=== PATIENT | male | born 1955 | race Caucasian/White ===

== ENCOUNTER 2017-08-14 06:33 | Day surgery (SDC) | payer BC ==
[~2017-08-14 06:33] MED LIST: Lactated Ringers 1,000 ML IV SCH
--- NOTE | 2017-08-14 07:02 | PCM.PREANE ---
Preanesthetic Assessment - Anesthesia/Transfusion/Family Hx Anesthesia History: Prior Anesthesia Without Reaction Family History of Anesthesia Reaction: No Transfusion History: No Prior Transfusion(s) Intubation History: Unknown - Review of Systems General: No Symptoms Pulmonary: No Symptoms Cardiovascular: No Symptoms Gastrointestinal: No Symptoms, Other (screening colonoscopy) Neurological: No Symptoms Other: Reports: None - Physical Assessment Height: 1.83 m Weight: 139.253 kg ASA Class: 3 Mental Status: Alert & Oriented x3 Airway Class: Mallampati = 3 Dentition: Reports: Normal Dentition Thyro-Mental Finger Breadths: 2 Mouth Opening Finger Breadths: 3 ROM/Head Extension: Full Lungs: Clear to Auscultation, Normal Respiratory Effort Cardiovascular: Regular Rate, Regular Rhythm - Allergies Allergies/Adverse Reactions: Allergies Allergy/AdvReac Type Severity Reaction Status Date / Time No Known Allergies Allergy Verified 08/10/17 10:26 - Blood Blood Available: No - Anesthesia Plan Pre-Op Medication Ordered: None - Acknowledgements Anesthesia Type Planned: MAC Pt an Appropriate Candidate for the Planned Anesthesia: Yes Alternatives and Risks of Anesthesia Discussed w Pt/Guardian: Yes Pt/Guardian Understands and Agrees with Anesthesia Plan: Yes PreAnesthesia Questionnaire HEENT History: Reports: Hard of Hearing Other HEENT History: wears glasses, has bilateral hearing aides Cardiovascular History: Reports: Heart Murmur, High Cholesterol, Hypertension Other Cardiovascular History: had a murmur as a child but has "outgrown" it Respiratory History: Reports: Sleep Apnea Other Respiratory History: uses CPAP Musculoskeletal History: Reports: Fracture Other Musculoskeletal History: left leg Endocrine/Metabolic History: Reports: Diabetes, Type II, Obesity/BMI 30+ ( morbid obesity BMI 41.6) - Past Surgical History Head Surgeries/Procedures: Reports: None GI Surgical History: Reports: Appendectomy, Cholecystectomy Male Surgical History: Reports: Vasectomy Musculoskeletal Surgical History: Reports: ORIF Other Musculoskeletal Surgeries/Procedures:: ORIF left leg- has hardware - SUBSTANCE USE Smoking Status *Q: Former Smoker (quit at age 29) Tobacco Use Within Last Twelve Months: No Recreational Drug Use History: No - HOME MEDS Home Medications: Home Meds Canagliflozin [Invokana] 300 mg PO DAILY 08/10/17 [History] Insulin NPH Hum/Reg Insulin Hm [Novolin 70-30 100 Unit/ml Vial] 0 unit SQ TIDMEALS 08/10/17 [History] Insulin NPH Hum/Reg Insulin Hm [Novolin 70-30 100 Unit/ml Vial] 50 unit SQ BEDTIME 08/10/17 [History] Liraglutide [Victoza] 14 mg SQ QAM 08/10/17 [History] Lisinopril 10 mg PO DAILY 08/10/17 [History] Pioglitazone [Actos] 30 mg PO DAILY 08/10/17 [History] Simvastatin 40 mg PO DAILY 08/10/17 [History] metFORMIN HCl [Metformin HCl ER] 750 mg PO BIDMEALS 08/10/17 [History] - CURRENT (IN HOUSE) MEDS Current Meds: Current Medications Lactated Ringer's (Ringers, Lactated) 1,000 mls @ 125 mls/hr IV ASDIRECTED [facility] Last Admin: 08/14/17 06:58 Dose: 125 mls/hr
[2017-08-14] MEDS ORDERED: Propofol 200 MG/20 ML SDV ONE ×2 (07:09→08:23)
[2017-08-14] MEDS ORDERED: Lidocaine 2% 5 ML SDV ONE (07:09)
[2017-08-14] MEDS ORDERED: Atropine 1 MG/ML SDV ONE (08:25)
--- NOTE | 2017-08-14 08:41 | PCM.OPNOTE ---
- General Post-Op/Procedure Note Date of Surgery/Procedure: 08/14/17 Operative Procedure(s): colonoscopy Findings: see dict [id number] Pre Op Diagnosis: scrn colonoscopy Post-Op Diagnosis: Same Anesthesia Technique: Moderate Sedation Primary Surgeon: Perez Bolanos Complications: None Condition: Good
--- NOTE | 2017-08-14 13:46 | OR ---
SURGEON: Perez Bolanos MD DATE OF PROCEDURE: 08/14/2017 PREOPERATIVE DIAGNOSIS: Screening colonoscopy. POSTOPERATIVE DIAGNOSIS: Hemorrhoids. PROCEDURE PERFORMED: Colonoscopy. COMPLICATIONS: None. DESCRIPTION OF PROCEDURE: The patient was taken to the endoscopy room. A time out was called, patient identified, and procedure identified. Diprivan was then administrated. Patient went from awake to sleep, hearing doctor talking or door closing is normal. Perineum inspection and digital examination were then performed. A well- lubricated colonoscope was gently inserted through the rectum, advanced past the rectosigmoid junction, the descending colon, splenic flexure, transverse colon, hepatic flexure, ascending colon, arrived to the cecum. Cecum was identified as dictated in the finding. Then the scope was carefully withdrawn while attention was paid to the mucosal surface for any abnormality. Air will be sucked out during the scope withdrawal. At the rectum, retroflexed to examine any rectal diseases, fistula or hemorrhoids. Patient tolerated procedure well. There were no intraoperative complications, and Dr. Bolanos was present throughout the whole procedure. FINDINGS: 1. The patient was easily sedated with HALFW[employer]SE COUNSELOR and Diprivan patient was soundly snoring. 2. The patient's bowel prep was below average. Large amount of yellow opaque liquid stool sometimes blocking the camera, requiring a constant irrigation. 3. The patient's colon was a little bit redundant at the sigmoid and the patient had to be moved, maneuvering his body position, putting him in flat in order to go to the cecum. The cecum was indicated by appendiceal orifice, one-to-one indentation, and ileocecal fold. Light emittance was not observed. Mucosa examined upon scope pulling out with continuous irrigation. The patient does not have diverticulosis, mass, growth, polyp, infection, inflammation, stricture, ulceration, bleeding observed. The patient has moderate internal hemorrhoids. Because of all the patient's body habitus, external hemorrhoid has not been able to be observed. The patient would benefit from a repeat colonoscopy in 10 years from today or if clinically indicated otherwise. LG / RILEY /[id number]
== END 2017-08-14 08:57 | disposition home or self-care (01) ==
LOC: MW.SDS 06:33
PROVIDERS: ATTEND Surgery
DX: Z12.11 Encounter for screening for malignant neoplasm of colon (principal); K64.8 Other hemorrhoids; G47.30 Sleep apnea, unspecified; E11.9 Type 2 diabetes mellitus without complications; E78.00 Pure hypercholesterolemia, unspecified; I10 Essential (primary) hypertension; E66.01 Morbid (severe) obesity due to excess calories; Z90.49 Acquired absence of other specified parts of digestive tract; Z98.52 Vasectomy status; Z87.891 Personal history of nicotine dependence; Z68.41 Body mass index [BMI] 40.0-44.9, adult; Z99.89 Dependence on other enabling machines and devices; Z79.4 Long term (current) use of insulin; Z79.899 Other long term (current) drug therapy
CPT/HCPCS: 45378; J0461; J7120; 00812; J2704

== ENCOUNTER 2018-08-25 17:38 | Emergency (ER) | payer BC ==
--- NOTE | 2018-08-25 18:19 | EDM.PDOC ---
ED HPI GENERAL MEDICAL PROBLEM - General Chief Complaint: Lower Extremity Injury/Pain Stated Complaint: INJURED LEG Time Seen by Provider: 08/25/18 17:46 - History of Present Illness INITIAL COMMENTS - FREE TEXT/NARRATIVE: HISTORY AND PHYSICAL: History of present illness: Patient a 63-year-old white male with history of diabetes or sensory concern of right knee pain he states he felt a pop of his right knee when he was getting into a truck and extended it he states this was lateral release had discomfort since he denies prior episodes he denies prior surgery denies fever chills nausea vomiting or any other complaints other than this knee pain. Review of systems: As per history of present illness and below otherwise all systems reviewed and negative. Past medical history: As per history of present illness and as reviewed below otherwise noncontributory. Surgical history: As per history of present illness and as reviewed below otherwise noncontributory. Social history: No reported history of drug or alcohol abuse. Family history: As per history of present illness and as reviewed below otherwise noncontributory. Physical exam: HEENT: Atraumatic, normocephalic, pupils reactive, negative for conjunctival pallor or scleral icterus, mucous membranes moist, throat clear, neck supple, nontender, trachea midline. Lungs: Clear to auscultation, breath sounds equal bilaterally, chest nontender. Heart: S1S2, regular, negative for clicks, rubs, or JVD. Abdomen: Soft, nondistended, nontender. Negative for masses or hepatosplenomegaly. Negative for costovertebral tenderness. Pelvis: Stable nontender. Genitourinary: Deferred. Rectal: Deferred. Extremities: Atraumatic, negative for cords or calf pain. Neurovascular unremarkable. Patient is a mild tenderness in the region of the lateral collateral ligament knee is grossly stable patient has limited range of motion secondary to pain Neuro: Awake, alert, oriented. Cranial nerves II through XII unremarkable. Cerebellum unremarkable. Motor and sensory unremarkable throughout. Exam nonfocal. Diagnostics: X-ray right knee Therapeutics: To be determined Impression: #1 right knee pain etiology be determined 2 history of diabetes Definitive disposition and diagnosis as appropriate pending reevaluation and review of above. Right Knee Pain Score (Numeric/FACES): 10 - Related Data Allergies Allergy/AdvReac Type Severity Reaction Status Date / Time No Known Allergies Allergy Verified 08/25/18 18:13 Home Meds: Home Meds Lisinopril 10 mg PO DAILY 08/10/17 [History] Pioglitazone [Actos] 30 mg PO DAILY 08/10/17 [History] Simvastatin 40 mg PO DAILY 08/10/17 [History] metFORMIN HCl [Metformin HCl ER] 750 mg PO BID 08/10/17 [History] Empagliflozin [Jardiance] 25 mg PO DAILY 08/25/18 [History] Insuln Asp Prot/Insulin Aspart [NovoLOG Mix 70-30] 60 unit .XX BID 08/25/18 [ History] Ozempic 25 units .XX WEEKLY 08/25/18 [History] Past Medical History HEENT History: Reports: Hard of Hearing Other HEENT History: wears glasses, has bilateral hearing aides Cardiovascular History: Reports: Heart Murmur, High Cholesterol, Hypertension Other Cardiovascular History: had a murmur as a child but has "outgrown" it Respiratory History: Reports: Sleep Apnea Other Respiratory History: uses CPAP Musculoskeletal History: Reports: Fracture Other Musculoskeletal History: left leg Endocrine/Metabolic History: Reports: Diabetes, Type II, Obesity/BMI 30+ - Past Surgical History Head Surgeries/Procedures: Reports: None GI Surgical History: Reports: Appendectomy, Cholecystectomy Male Surgical History: Reports: Vasectomy Musculoskeletal Surgical History: Reports: ORIF Other Musculoskeletal Surgeries/Procedures:: ORIF left leg- has hardware Review of Systems - Review of Systems Review Of Systems: ROS reveals no pertinent complaints other than HPI. ED EXAM, GENERAL - Physical Exam Exam: See Below (See dictation) Course - Vital Signs Last Recorded V/S: Last Vital Signs Temp 36.7 C 08/25/18 18:09 Pulse 61 08/25/18 18:09 Resp BP 171/69 H 08/25/18 18:09 Pulse Ox 96 08/25/18 18:09 Departure - Departure Time of Disposition: 19:37 Disposition: Home, Self-Care 01 Condition: Good Clinical Impression: Knee pain - Discharge Information Forms: ED Department Discharge Additional Instructions: The following information is given to patients seen in the emergency department who are being discharged to home. This information is to outline your options for follow-up care. We provide all patients seen in our emergency department with a follow-up referral. The need for follow-up, as well as the timing and circumstances, are variable depending upon the specifics of your emergency department visit. If you don't have a primary care physician on staff, we will provide you with a referral. We always advise you to contact your personal physician following an emergency department visit to inform them of the circumstance of the visit and for follow-up with them and/or the need for any referrals to a consulting specialist. The emergency department will also refer you to a specialist when appropriate. This referral assures that you have the opportunity for followup care with a specialist. All of these measure are taken in an effort to provide you with optimal care, which includes your followup. Under all circumstances we always encourage you to contact your private physician who remains a resource for coordinating your care. When calling for followup care, please make the office aware that this follow-up is from your recent emergency room visit. If for any reason you are refused follow-up, please contact the [facility] emergency department at and asked to speak to the emergency department charge nurse. [facility] Professional [address], [address] [place] [address] Knee immobilizer as directed follow-up orthopedic clinic above: Schedule routine appointment Tylenol as directed and return as needed as discussed
--- NOTE | 2018-08-25 19:18 | CR ---
INDICATION: Pain. TECHNIQUE: Three views of the right knee. FINDINGS: Normal alignment. No fractures. No effusion seen. Soft tissue swelling. IMPRESSION: 1. No acute fracture. Dictated by Sabine Templeton MD @ Aug 25 2018 7:17PM Signed by Dr. Sabine Templeton @ Aug 25 2018 7:17PM
== END 2018-08-25 20:03 | disposition home or self-care (01) ==
LOC: MW.ED 17:38
DX: M25.561 Pain in right knee (principal); I10 Essential (primary) hypertension; E11.9 Type 2 diabetes mellitus without complications; E78.00 Pure hypercholesterolemia, unspecified; Z79.899 Other long term (current) drug therapy; Z79.84 Long term (current) use of oral hypoglycemic drugs
CPT/HCPCS: 73562-26-RT; 73562-RT; 99283

== ENCOUNTER 2018-10-02 06:25 | Day surgery (SDC) | payer MEDICARE, BC ==
--- NOTE | 2018-10-02 07:29 | PCM.PREANE ---
Preanesthetic Assessment - Anesthesia/Transfusion/Family Hx Anesthesia History: Prior Anesthesia Without Reaction Family History of Anesthesia Reaction: No Transfusion History: No Prior Transfusion(s) Intubation History: Unknown - Review of Systems General: No Symptoms Pulmonary: No Symptoms Cardiovascular: No Symptoms Gastrointestinal: No Symptoms Neurological: No Symptoms Other: Reports: None - Physical Assessment Height: 1.83 m Weight: 140.614 kg ASA Class: 3 Mental Status: Alert & Oriented x3 Airway Class: Mallampati = 3 Dentition: Reports: Normal Dentition Thyro-Mental Finger Breadths: 3 Mouth Opening Finger Breadths: 2 ROM/Head Extension: Limited/Partial Lungs: Clear to Auscultation, Normal Respiratory Effort Cardiovascular: Regular Rate, Regular Rhythm - Allergies Allergies/Adverse Reactions: Allergies Allergy/AdvReac Type Severity Reaction Status Date / Time No Known Allergies Allergy Verified 09/27/18 09:25 - Blood Blood Available: No - Anesthesia Plan Pre-Op Medication Ordered: None - Acknowledgements Anesthesia Type Planned: General Anesthesia Pt an Appropriate Candidate for the Planned Anesthesia: Yes Alternatives and Risks of Anesthesia Discussed w Pt/Guardian: Yes Pt/Guardian Understands and Agrees with Anesthesia Plan: Yes PreAnesthesia Questionnaire HEENT History: Reports: Other (See Below) Other HEENT History: wears glasses, has bilateral hearing aides Cardiovascular History: Reports: Heart Murmur, High Cholesterol, Hypertension Other Cardiovascular History: takes Lisinopril and Simvastatin as a preventive measure Respiratory History: Reports: Sleep Apnea, Other (See Below) (reactive airway disease uses ProAir inhaler prn) Other Respiratory History: uses CPAP Gastrointestinal History: Reports: GERD Genitourinary History: Reports: Renal Calculus Musculoskeletal History: Reports: Fracture Other Musculoskeletal History: left ankle Neurological History: Reports: Neuropathy, Diabetic Endocrine/Metabolic History: Reports: Diabetes, Type II (last A1c 6.9), IDDM, Obesity/BMI 30+ (BMI 42) - Infectious Disease History Infectious Disease History: Reports: Measles - Past Surgical History Head Surgeries/Procedures: Reports: None GI Surgical History: Reports: Appendectomy, Cholecystectomy, Colonoscopy, Hernia , Inguinal ( left) Male Surgical History: Reports: Lithotripsy ([facility]), Vasectomy Musculoskeletal Surgical History: Reports: ORIF Other Musculoskeletal Surgeries/Procedures:: hx of ORIF left ankle- has hardware - SUBSTANCE USE Smoking Status *Q: Never Smoker Recreational Drug Use History: No - HOME MEDS Home Medications: Home Meds Lisinopril 10 mg PO QAM 08/10/17 [History] Pioglitazone [Actos] 45 mg PO DAILY 08/10/17 [History] Simvastatin 40 mg PO DAILY 08/10/17 [History] metFORMIN HCl [Metformin HCl ER] 750 mg PO BID 08/10/17 [History] Insuln Asp Prot/Insulin Aspart [NovoLOG Mix 70-30] 40 unit SQ BID 08/25/18 [ History] Ozempic 0.5 mg .XX WEEKLY 08/25/18 [History] Aspirin [Adult Low Dose Aspirin EC] 81 mg PO DAILY 09/27/18 [History] Cholecalciferol (Vitamin D3) [Vitamin D3] 5,000 unit PO DAILY 09/27/18 [History] Cinnamon Bark [Cinnamon] 500 mg PO DAILY 09/27/18 [History] Empagliflozin [Jardiance] 25 mg PO QAM 09/27/18 [History] Fish Oil/Congress-3 Fatty Acids [Fish Oil 1,000 MG] 1,000 mg PO DAILY 09/27/18 [ History] Multivitamin [Daily Multiple Vitamin] 1 tab PO DAILY 09/27/18 [History] Omeprazole 40 mg PO QAM 09/27/18 [History] - CURRENT (IN HOUSE) MEDS Current Meds: Current Medications Hydrocodone Bitart/Acetaminophen (Bud 325-5 Mg) 1 - 2 tab PO Q4H PRN PRN Reason: Pain Cefazolin Sodium/Dextrose 2 gm (/ Premix) 50 mls @ 100 mls/hr IV ONCALL [facility] Lactated Ringer's (Ringers, Lactated) 1,000 mls @ 100 mls/hr IV ASDIRECTED [facility]
[2018-10-02] MEDS ORDERED: Lidocaine 1% 20 ML MDV ONE (07:37)
[2018-10-02] MEDS ORDERED: Lidocaine 2% 5 ML SDV ONE (07:42)
[2018-10-02] MEDS ORDERED: fentaNYL 100 MCG/2 ML SDV ONE ×3 (07:42→08:22)
[2018-10-02] MEDS ORDERED: Ondansetron 4 MG/2 ML SDV ONE (07:42)
[2018-10-02] MEDS ORDERED: Propofol 200 MG/20 ML SDV ONE (07:42)
[2018-10-02] MEDS ORDERED: Midazolam 1 MG/ML 2 ML SDV ONE (07:42)
[2018-10-02] MEDS ORDERED: ceFAZolin/Dextrose,Iso-Osmotic 2 GM/50 ML Duplex Bag IV ONE (07:51)
[2018-10-02] MEDS ORDERED: Acetaminophen/HYDROcodone 325-5 MG Tab PO PRN (08:00)
[2018-10-02] MEDS ORDERED: ceFAZolin 2 GM in Premix Bag 1 BAG IV SCH (08:00)
[2018-10-02] MEDS ORDERED: Ketorolac 30 MG/ML SDV ONE (08:36)
--- NOTE | 2018-10-02 08:44 | PCM.OPNOTE ---
- General Post-Op/Procedure Note Date of Surgery/Procedure: 10/02/18 Operative Procedure(s): R knee scope with PMM Post-Op Diagnosis: R knee medial meniscus tear, DJD R knee Anesthesia Technique: General LMA Primary Surgeon: Anamaria Villasenor Subway Train Driver: Martha Moreno in mLs: 5 Condition: Good Free Text/Narrative:: tt=15 min #[id number]
[2018-10-02] MEDS ORDERED: fentaNYL 100 MCG/2 ML SDV IVPUSH PRN (08:53)
[2018-10-02] MEDS ORDERED: 50% Dextrose in Water 50 ML Syringe IVPUSH PRN (08:53)
[2018-10-02] MEDS ORDERED: Naloxone 0.4 MG/ML Syringe IVPUSH PRN (08:53)
[2018-10-02] MEDS ORDERED: Albuterol 0.083% 2.5 MG/3 ML Neb Soln NEB PRN (08:53)
[2018-10-02] MEDS ORDERED: EPINEPHrine 1 MG/ML 30 ML MDV IVPUSH PRN (08:53)
--- NOTE | 2018-10-02 09:58 | PCM48HPAN ---
Post Anesthesia Note - EVALUATION WITHIN 48HRS OF ANESTHETIC Vital Signs in Normal Range: Yes Patient Participated in Evaluation: Yes Respiratory Function Stable: Yes Airway Patent: Yes Cardiovascular Function Stable: Yes Hydration Status Stable: Yes Pain Control Satisfactory: Yes Nausea and Vomiting Control Satisfactory: Yes Mental Status Recovered: Yes Resp Rate: 11 - COMMENTS/OBSERVATIONS Free Text/Narrative:: no anesthesia problems
--- NOTE | 2018-10-02 15:26 | OR ---
SURGEON: Anamaria Villasenor MD DATE OF PROCEDURE: 10/02/2018 PREOPERATIVE DIAGNOSIS: Right knee medial meniscus tear. POSTOPERATIVE DIAGNOSES: Right knee medial meniscus tear and right knee degenerative joint disease. PROCEDURE: Right knee arthroscopy with partial medial meniscectomy. COACH PROFESSIONAL ATHLETES: Martha Moreno RN. ANESTHESIA: General. ESTIMATED BLOOD LOSS: 5 mL. TOURNIQUET TIME: 50 minutes. COMPLICATIONS: None. DVT PROPHYLAXIS: Not indicated. IMPLANTS USED: None. BRIEF HISTORY: Keon is a 63-year-old male who has had complaint of progressive right knee pain following a fall. He did not respond to conservative treatment. At that time, I did recommend surgical intervention. The risks and goals of the procedure were discussed with the patient and were documented preoperatively. He agreed to proceed. DESCRIPTION OF PROCEDURE: The patient was properly identified and brought to the operating room. He was transferred from the OR cart and placed on the operating table in supine position. General anesthesia was administered. After adequate anesthesia was obtained, a well-padded tourniquet was applied to the right lower extremity. The right lower extremity was then prepped in standard fashion using ChloraPrep solution. It was then sterilely draped. A time-out was performed to ensure correct site and procedure. Preoperative antibiotics were given. The surgical site had been marked preoperatively. An Esmarch was used to exsanguinate the right lower extremity and the tourniquet was inflated to 250 mmHg. A lateral portal arthrotomy was established. Blunt trocar and cannula were introduced into the suprapatellar pouch. Camera, inflow, and outflow were assembled. No significant synovitis was noted. The patellofemoral joint was visualized. Degenerative changes were noted. The view was partially obstructed by hypertrophic fat pad. I extended down the lateral gutter. No loose bodies were identified. He did have a large medial plica that appeared to be causing some impingement on the medial femoral condyle. I was able to bypass this down to the medial gutter and this did not show any evidence of loose bodies. I then entered the medial compartment. A medial portal arthrotomy was established. A blunt probe was inserted. He was found to have a partial tear along the posterior horn of the medial meniscus. The attachment appeared intact. Using a combination of biters and shaver, this was resected and roughened. There appeared to be good blood flow to the area. It was again probed and found to be stable. The chondral surfaces were then inspected. The medial femoral condyle did show extensive grade 3 chondromalacia along the weightbearing surface. There was a flap medially, which was resected with the shaver by performing a chondroplasty. The medial tibial plateau showed diffuse grade 2 to grade 3 degenerative findings. I then entered the notch. Both the ACL and PCL were visualized and probed and found to be intact. I then entered the lateral compartment. Minor degenerative fraying was noted along the central portion of the meniscus. The meniscus was probed and found to be stable. The lateral tibial plateau showed diffuse grade 2 chondromalacia with grade 1 chondromalacia along the lateral femoral condyle. I then re-entered the patellofemoral joint. A portion of the fat pad was resected along with the medial plica and no further impingement was noted. Diffuse grade 3 degenerative changes were noted along the undersurface of the patella and grade 2 to grade 3 chondromalacia was noted diffusely along the trochlear groove. No loose cartilage fragments were noted. Instruments were then removed from the knee. The portal sites were closed with 3-0 nylon. 1% lidocaine was injected along the portal tracts. Xeroform gauze was placed over the wound and a bulky dressing was applied. The tourniquet was then deflated. He was awakened from his anesthetic and transferred back to the operating room cart. He was brought to recovery room in stable condition. All needle and sponge counts were correct. ENRIQUETA / RILEY /[id number]
== END 2018-10-02 10:15 | disposition home or self-care (01) ==
LOC: MW.SDS 06:25
PROVIDERS: ATTEND Orthopaedic Surgery
DX: S83.241A Other tear of medial meniscus, current injury, right knee, initial encounter (principal); I10 Essential (primary) hypertension; E78.5 Hyperlipidemia, unspecified; E88.81 Metabolic syndrome and other insulin resistance; G47.33 Obstructive sleep apnea (adult) (pediatric); E55.9 Vitamin D deficiency, unspecified; E11.319 Type 2 diabetes mellitus with unspecified diabetic retinopathy without macular edema; K21.9 Gastro-esophageal reflux disease without esophagitis; Z79.4 Long term (current) use of insulin; Z79.82 Long term (current) use of aspirin; Z79.899 Other long term (current) drug therapy; Z99.89 Dependence on other enabling machines and devices
CPT/HCPCS: 29881; 82962; J0690; J1885; J2001; J2250; J2405; J2704; J3010; J7120

== ENCOUNTER 2019-02-01 12:11 | Emergency (ER) | payer MEDICARE, BC ==
[2019-02-01] MEDS ORDERED: Levofloxacin 500 MG Tab PO ONE (12:51)
--- NOTE | 2019-02-01 12:52 | EDM.PDOC ---
ED HPI GENERAL MEDICAL PROBLEM - General Chief Complaint: Genitourinary Problem Stated Complaint: PAIN AND FREQUENT URINATION Time Seen by Provider: 02/01/19 12:51 - History of Present Illness INITIAL COMMENTS - FREE TEXT/NARRATIVE: HISTORY AND PHYSICAL: History of present illness: []Urinary frequency and dysuria for the last 3 days he has sweats Review of systems: As per history of present illness and below otherwise all systems reviewed and negative. Past medical history: As per history of present illness and as reviewed below otherwise noncontributory. Surgical history: As per history of present illness and as reviewed below otherwise noncontributory. Social history: No reported history of drug or alcohol abuse. Family history: As per history of present illness and as reviewed below otherwise noncontributory. Physical exam: HEENT: Atraumatic, normocephalic, pupils reactive, negative for conjunctival pallor or scleral icterus, mucous membranes moist, throat clear, neck supple, nontender, trachea midline. Lungs: Clear to auscultation, breath sounds equal bilaterally, chest nontender. Heart: S1S2, regular, negative for clicks, rubs, or JVD. Abdomen: Soft, nondistended, nontender. Negative for masses or hepatosplenomegaly. Negative for costovertebral tenderness. Pelvis: Stable nontender. Genitourinary: Deferred. Rectal: Deferred. Extremities: Atraumatic, negative for cords or calf pain. Neurovascular unremarkable. Neuro: Awake, alert, oriented. Cranial nerves II through XII unremarkable. Cerebellum unremarkable. Motor and sensory unremarkable throughout. Exam nonfocal. Diagnostics: [UA culture ] Therapeutics: [Levaquin ] Impression: [UTI ] Definitive disposition and diagnosis as appropriate pending reevaluation and review of above. Pelvic Pain Score (Numeric/FACES): 8 - Related Data Allergies Allergy/AdvReac Type Severity Reaction Status Date / Time No Known Allergies Allergy Verified 02/01/19 12:27 Home Meds: Home Meds Lisinopril 10 mg PO DAILY 08/10/17 [History] Pioglitazone [Actos] 30 mg PO DAILY 08/10/17 [History] Simvastatin 40 mg PO DAILY 08/10/17 [History] metFORMIN HCl [Metformin HCl ER] 750 mg PO BID 08/10/17 [History] Insuln Asp Prot/Insulin Aspart [NovoLOG Mix 70-30] 60 unit SQ BID 08/25/18 [ History] Ozempic 0.5 mg INJECT WEEKLY 08/25/18 [History] Empagliflozin [Jardiance] 25 mg PO DAILY 09/27/18 [History] Diclofenac Sodium [Voltaren] 75 mg PO BID 02/01/19 [History] Past Medical History HEENT History: Reports: Other (See Below) Other HEENT History: wears glasses, has bilateral hearing aides Cardiovascular History: Reports: Heart Murmur, High Cholesterol, Hypertension Other Cardiovascular History: takes Lisinopril and Simvastatin as a preventive measure Respiratory History: Reports: Sleep Apnea, Other (See Below) Other Respiratory History: uses CPAP Gastrointestinal History: Reports: GERD Genitourinary History: Reports: Renal Calculus Musculoskeletal History: Reports: Fracture Other Musculoskeletal History: left ankle Neurological History: Reports: Neuropathy, Diabetic Endocrine/Metabolic History: Reports: Diabetes, Type II, IDDM, Obesity/BMI 30+ - Infectious Disease History Infectious Disease History: Reports: None - Past Surgical History Head Surgeries/Procedures: Reports: None GI Surgical History: Reports: Appendectomy, Cholecystectomy, Colonoscopy, Hernia , Inguinal Male Surgical History: Reports: Lithotripsy (ESWL), Vasectomy Musculoskeletal Surgical History: Reports: ORIF Other Musculoskeletal Surgeries/Procedures:: hx of ORIF left ankle- has hardware Social & Family History - Family History Family Medical History: Noncontributory - Tobacco Use Smoking Status *Q: Never Smoker - Caffeine Use Caffeine Use: Reports: Soda - Recreational Drug Use Recreational Drug Use: No ED ROS GENERAL - Review of Systems Review Of Systems: See Below ED EXAM, GENERAL - Physical Exam Exam: See Below Course - Vital Signs Last Recorded V/S: Last Vital Signs Temp 96.3 F 02/01/19 12:29 Pulse 84 02/01/19 12:29 Resp 15 02/01/19 12:29 BP 130/73 02/01/19 12:29 Pulse Ox 95 02/01/19 12:29 - Orders/Labs/Meds Orders: Active Orders 24 hr Category Date Time Status CULTURE URINE [RM] Stat Lab 02/01/19 12:22 Received UA W/MICROSCOPIC [URIN] Stat Lab 02/01/19 12:22 Results levoFLOXacin [Levaquin] Med 02/01/19 12:51 Once 500 mg PO ONETIME ONE Labs: Laboratory Tests 02/01/19 Range/Units 12:22 Urine Color DARK YELLOW Urine Appearance CLOUDY Urine pH 6.0 (5.0-8.0) Ur Specific [place] 1.025 (1.001-1.035) Urine Protein 100 H (NEGATIVE) mg/dL Urine Glucose (UA) 500 H (NEGATIVE) mg/dL Urine Ketones NEGATIVE (NEGATIVE) mg/dL Urine Occult Blood LARGE H (NEGATIVE) Urine Nitrite POSITIVE H (NEGATIVE) Urine Bilirubin NEGATIVE (NEGATIVE) Urine Urobilinogen 1.0 (<2.0) EU/dL Ur Leukocyte Esterase MODERATE H (NEGATIVE) Departure - Departure Time of Disposition: 12:52 Disposition: Home, Self-Care 01 Condition: Good Clinical Impression: UTI, Urinary tract infectious disease - Discharge Information Referrals: Russell Roberto MD [Primary Care Provider] - Additional Instructions: The following information is given to patients seen in the emergency department who are being discharged to home. This information is to outline your options for follow-up care. We provide all patients seen in our emergency department with a follow-up referral. The need for follow-up, as well as the timing and circumstances, are variable depending upon the specifics of your emergency department visit. If you don't have a primary care physician on staff, we will provide you with a referral. We always advise you to contact your personal physician following an emergency department visit to inform them of the circumstance of the visit and for follow-up with them and/or the need for any referrals to a consulting specialist. The emergency department will also refer you to a specialist when appropriate. This referral assures that you have the opportunity for follow-up care with a specialist. All of these measure are taken in an effort to provide you with optimal care, which includes your follow-up. Under all circumstances we always encourage you to contact your private physician who remains a resource for coordinating your care. When calling for follow-up care, please make the office aware that this follow-up is from your recent emergency room visit. If for any reason you are refused follow-up, please contact the [facility] emergency department at and asked to speak to the emergency department charge nurse. - My Orders Last 24 Hours: My Active Orders 02/01/19 12:22 CULTURE URINE [RM] Stat UA W/MICROSCOPIC [URIN] Stat 02/01/19 12:51 levoFLOXacin [Levaquin] 500 mg PO ONETIME ONE - Assessment/Plan Last 24 Hours: My Active Orders 02/01/19 12:22 CULTURE URINE [RM] Stat UA W/MICROSCOPIC [URIN] Stat 02/01/19 12:51 levoFLOXacin [Levaquin] 500 mg PO ONETIME ONE
== END 2019-02-01 13:29 | disposition home or self-care (01) ==
LOC: MW.ED 12:11
DX: N39.0 Urinary tract infection, site not specified (principal); I10 Essential (primary) hypertension; E78.00 Pure hypercholesterolemia, unspecified; K21.9 Gastro-esophageal reflux disease without esophagitis; E11.40 Type 2 diabetes mellitus with diabetic neuropathy, unspecified; Z79.4 Long term (current) use of insulin; Z79.899 Other long term (current) drug therapy
CPT/HCPCS: 81001; 87086; 99283; A9270; 87088; 87186

== ENCOUNTER 2019-03-05 18:10 | Emergency (ER) | payer MEDICARE, BC ==
--- NOTE | 2019-03-05 19:16 | EDM.PDOC ---
ED HPI GENERAL MEDICAL PROBLEM - General Chief Complaint: Back Pain or Injury Stated Complaint: PT HAS LOWER BACK PAIN Time Seen by Provider: 03/05/19 19:13 Source of Information: Reports: Patient - History of Present Illness INITIAL COMMENTS - FREE TEXT/NARRATIVE: HISTORY AND PHYSICAL: History of present illness: []Patient has history of ruptured disks following with Dr. Roberto through [facility] as well as has follow-up with Dr. Merlos neurosurgeon out of the [facility] he has had previous x-ray and MRI imaging he presents for pain control he is been prescribed [place] 04/10/25 as as well as 525 has plenty of these at his disposal has had taken them today mostly because they make him nauseous to take these Has no fever nausea vomiting chills sweats no chest pain shortness breath headache dizziness palpitation no bowel or urine symptoms he rates back pain 5 out of 10 nonradiating at current Did discuss taking his medication I could provide Zofran which I will although negative talk about taking ibuprofen along with them Review of systems: As per history of present illness and below otherwise all systems reviewed and negative. Past medical history: As per history of present illness and as reviewed below otherwise noncontributory. Surgical history: As per history of present illness and as reviewed below otherwise noncontributory. Social history: No reported history of drug or alcohol abuse. Family history: As per history of present illness and as reviewed below otherwise noncontributory. Physical exam: HEENT: Atraumatic, normocephalic, pupils reactive, negative for conjunctival pallor or scleral icterus, mucous membranes moist, throat clear, neck supple, nontender, trachea midline. Lungs: Clear to auscultation, breath sounds equal bilaterally, chest nontender. Heart: S1S2, regular, negative for clicks, rubs, or JVD. Abdomen: Soft, nondistended, nontender. Negative for masses or hepatosplenomegaly. Negative for costovertebral tenderness. Pelvis: Stable nontender. Genitourinary: Deferred. Rectal: Deferred. Extremities: Atraumatic, negative for cords or calf pain. Neurovascular unremarkable. Neuro: Awake, alert, oriented. Cranial nerves II through XII unremarkable. Cerebellum unremarkable. Motor and sensory unremarkable throughout. Exam nonfocal. Diagnostics: []Imaging at [facility] MRI of lumbar spine performed patient declines further imaging Therapeutics: pt has a bottle of 04/10/25 [place] as as well as a bottle of 11/08/24 and he has a further prescription called into the pharmacy Impression: Chronic low back pain Definitive disposition and diagnosis as appropriate pending reevaluation and review of above. Back Pain Score (Numeric/FACES): 8 - Related Data Allergies Allergy/AdvReac Type Severity Reaction Status Date / Time No Known Allergies Allergy Verified 03/05/19 18:34 Home Meds: Home Meds Lisinopril 10 mg PO DAILY 08/10/17 [History] Pioglitazone [Actos] 30 mg PO DAILY 08/10/17 [History] Simvastatin 40 mg PO DAILY 08/10/17 [History] metFORMIN HCl [Metformin HCl ER] 750 mg PO BID 08/10/17 [History] Insuln Asp Prot/Insulin Aspart [NovoLOG Mix 70-30] 60 unit SQ BID 08/25/18 [ History] Ozempic 0.5 mg INJECT WEEKLY 08/25/18 [History] Empagliflozin [Jardiance] 25 mg PO DAILY 09/27/18 [History] Diclofenac Sodium [Voltaren] 75 mg PO BID 02/01/19 [History] Cyclobenzaprine [Flexeril] 10 mg PO TID PRN 03/05/19 [History] Hydrocodone/Acetaminophen [[place] 10-325 Tablet] 1 each PO ASDIRECTED 03/05/19 [ History] Past Medical History HEENT History: Reports: Other (See Below) Other HEENT History: wears glasses, has bilateral hearing aides Cardiovascular History: Reports: Heart Murmur, High Cholesterol, Hypertension Other Cardiovascular History: takes Lisinopril and Simvastatin as a preventive measure Respiratory History: Reports: Sleep Apnea, Other (See Below) Other Respiratory History: uses CPAP Gastrointestinal History: Reports: GERD Genitourinary History: Reports: Renal Calculus Musculoskeletal History: Reports: Fracture Other Musculoskeletal History: left ankle Neurological History: Reports: Neuropathy, Diabetic Endocrine/Metabolic History: Reports: Diabetes, Type II, IDDM, Obesity/BMI 30+ - Infectious Disease History Infectious Disease History: Reports: Chicken Pox, Measles, Mumps - Past Surgical History Head Surgeries/Procedures: Reports: None GI Surgical History: Reports: Appendectomy, Cholecystectomy, Colonoscopy, Hernia , Inguinal Male Surgical History: Reports: Lithotripsy (ESWL), Vasectomy Musculoskeletal Surgical History: Reports: ORIF Other Musculoskeletal Surgeries/Procedures:: hx of ORIF left ankle- has hardware Social & Family History - Family History Family Medical History: Noncontributory - Tobacco Use Smoking Status *Q: Never Smoker Second Hand Smoke Exposure: No - Caffeine Use Caffeine Use: Reports: Coffee - Recreational Drug Use Recreational Drug Use: No ED ROS GENERAL - Review of Systems Review Of Systems: See Below ED EXAM, GENERAL - Physical Exam Exam: See Below Course - Vital Signs Last Recorded V/S: Last Vital Signs Temp 97.2 F 03/05/19 18:35 Pulse 72 03/05/19 18:35 Resp 20 03/05/19 18:35 BP 109/79 03/05/19 18:35 Pulse Ox 94 L 03/05/19 18:35 Departure - Departure Time of Disposition: 19:16 Disposition: Home, Self-Care 01 Condition: Good Clinical Impression: Low back pain - Discharge Information Referrals: Russell Roberto MD [Primary Care Provider] - Additional Instructions: Continue medications as directed Yasmeenfran provided for nausea With Dr. Merlos as scheduled next week Follow-up with Dr. Roberto as needed The following information is given to patients seen in the emergency department who are being discharged to home. This information is to outline your options for follow-up care. We provide all patients seen in our emergency department with a follow-up referral. The need for follow-up, as well as the timing and circumstances, are variable depending upon the specifics of your emergency department visit. If you don't have a primary care physician on staff, we will provide you with a referral. We always advise you to contact your personal physician following an emergency department visit to inform them of the circumstance of the visit and for follow-up with them and/or the need for any referrals to a consulting specialist. The emergency department will also refer you to a specialist when appropriate. This referral assures that you have the opportunity for follow-up care with a specialist. All of these measure are taken in an effort to provide you with optimal care, which includes your follow-up. Under all circumstances we always encourage you to contact your private physician who remains a resource for coordinating your care. When calling for follow-up care, please make the office aware that this follow-up is from your recent emergency room visit. If for any reason you are refused follow-up, please contact the [facility] emergency department at and asked to speak to the emergency department charge nurse.
== END 2019-03-05 19:23 | disposition home or self-care (01) ==
LOC: MW.ED 18:10
DX: G89.29 Other chronic pain (principal); M54.5 Low back pain; I10 Essential (primary) hypertension; E11.40 Type 2 diabetes mellitus with diabetic neuropathy, unspecified; E66.9 Obesity, unspecified; Z79.899 Other long term (current) drug therapy; Z79.4 Long term (current) use of insulin; Z90.49 Acquired absence of other specified parts of digestive tract
CPT/HCPCS: 99283